=== PATIENT | male | born 1995 | race Caucasian/White ===

== ENCOUNTER 2019-05-23 19:55 | Emergency (ER) | payer SELFPAY ==
[~2019-05-23] VITALS: Ht 172.7 cm; Wt 81.8 kg
[2019-05-23 20:14] VITALS: Ht 172.7 cm; Wt 81.8 kg
[2019-05-23] MEDS ORDERED: AUGMENTIN 875-11 TAB PO (23:06)
[2019-05-23] MEDS ORDERED: HYDROCODON-ACE1 EAC7 PO (23:06)
[2019-05-23 23:22] VITALS: BP 122/74
== END 2019-05-23 23:22 | disposition home or self-care (01) ==
LOC: D.ER 19:55
DX: S01.112A Laceration without foreign body of left eyelid and periocular area, initial encounter (principal); Y04.2XXA Assault by strike against or bumped into by another person, initial encounter; Y93.89 Activity, other specified; Y92.89 Other specified places as the place of occurrence of the external cause; S02.2XXA Fracture of nasal bones, initial encounter for closed fracture